=== PATIENT | male | born 2000 | race Caucasian/White ===

== ENCOUNTER 2018-07-27 13:20 | Emergency (ER) | payer OTHER ==
[~2018-07-27] VITALS: Ht 170.2 cm; Wt 81.8 kg
[2018-07-27 13:46] VITALS: BP 127/82
== END 2018-07-27 15:16 | disposition home or self-care (01) ==
LOC: EMS 13:21
DX: F32.9 Major depressive disorder, single episode, unspecified (principal)
CPT/HCPCS: 99285